=== PATIENT | male | born 1990 | race Caucasian/White ===

== ENCOUNTER 2017-01-29 21:02 | Emergency (ER) | payer OTHER ==
[~2017-01-29] VITALS: Ht 170.2 cm; Wt 59.0 kg
--- NOTE | ~2017-01-29 | CR63 ---
[facility] A Service of [facility] RADIOLOGY TEXT RESULTS PATIENT: RASHMI HOYOS LOCATION: SED : 91 UNIT #: [id number] AGE: [address]: RAMSES BRAMBILA SEX: M ORDER DR: [id number] [address] [address] [id number] MR#: [id number] Acc #: [id number] NAME: RASHMI HOYOS : 1990 SEX: M STUDY DATE/TIME: 01/29/2017 22:08 UNIT: SED ROOM: STUDY DESCRIPTION: CR Chest 2 View Attending Physician: Ramses Brambila Aprn Ordering Physician: Ramses Brambila Aprn Primary Care Physician: Jp Rivers M.D. MEDICAL IMAGING REPORT This report is preliminary unless electronic signature is present. EXAM PA and lateral chest. HISTORY Cough and fever for 5 days. FINDINGS 2 views of the chest demonstrate minimal patchy infiltrate in the right lung base and questionable minimal infiltrate along the inferior left hilum. Findings could be secondary to infectious or inflammatory process including subsegmental pneumonia. Short-term followup chest x-ray is recommended. Remainder of the lungs are clear. Cardiac size and pulmonary vascularity are normal. IMPRESSION Mild subsegmental infiltrate in the right lung base and probable minimal left inferior perihilar infiltrate. Findings could be due to pneumonia but are nonspecific. Short-term followup chest x-ray is recommended after appropriate assessment and treatment. Remainder lungs are clear. Dictated by... Jj Tomas M.D. THIS IS AN ELECTRONICALLY VERIFIED REPORT Jj Tomas M.D. at 01/30/2017 11:50 PM DFL/rell TD: 01/30/2017 11:09 JOB #: [id number] MEDICAL IMAGING REPORT [facility] A Service of [facility] RADIOLOGY TEXT RESULTS PATIENT: RASHMI HOYOS LOCATION: SED : 91 UNIT #: [id number] AGE: [address]: RAMSES BRAMBILA SEX: M ORDER DR: Page 1 of 1
[~2017-01-29 21:02] MED LIST: AMOXICILLIN500 M1 PO; AUGMENTIN PO; CLEOCIN PO; FAMOTIDINE PO; FLEXERIL PO; MOTRIN100 MG/5 M PO; NO MEDICATIONS; VICODIN 5/500 T1 TAB PO
== END 2017-01-29 23:09 | disposition home or self-care (01) ==
LOC: SED 21:02
DX: J18.9 Pneumonia, unspecified organism (principal); F17.210 Nicotine dependence, cigarettes, uncomplicated; Z91.040 Latex allergy status; Z88.8 Allergy status to other drugs, medicaments and biological substances
CPT/HCPCS: 71020; 99283